=== PATIENT | female | born 2000 | race Caucasian/White ===

== ENCOUNTER 2022-06-06 23:24 | Emergency (ER) | payer OTHER | END 2022-06-07 00:13 | disposition home or self-care (01) | LOC: CSHERS 23:24 | DX: I80.9 Phlebitis and thrombophlebitis of unspecified site (principal) | CPT/HCPCS: 99283 ==

== ENCOUNTER 2022-07-01 14:36 | Outpatient (CLI) | payer OTHER | END 2022-07-01 14:37 | disposition home or self-care (01) | LOC: CSHULT 14:36 | PROVIDERS: ATTEND Family Medicine | DX: N93.9 Abnormal uterine and vaginal bleeding, unspecified (principal) | CPT/HCPCS: 76856 ==

== ENCOUNTER 2022-09-08 14:56 | Emergency (ER) | payer OTHER ==
[~2022-09-08 14:56] MED LIST: Iopamidol 300 61% 100 ML VIAL FS ONE
[2022-09-08] MEDS ORDERED: Ondansetron ODT 4 MG TAB ONE (15:37)
[2022-09-08 15:43] LABS: BHCG - Serum Negative (NEGATIVE); Pregs Control Background? CLEAR/WHITE (CLR/WHITE); Pregs Control Bar Appear? YES (CONTROL BAR)
[2022-09-08 15:59] LABS: Bilirubin Neg (Negative); Blood, Urine 150 (Negative); Clarity Cloudy (Clear); Glucose, Urine (Dipstick) Normal (Negative); Ketone, Urine 15 mg/dL (Negative); Leukocyte 100 (Negative); Nitrite Negative (Negative); Protein, Urine (Dipstick) 100 mg/dl (Neg-Trace); Urobilinogen Normal mg/dL (Less than 2)
[2022-09-08] MEDS ORDERED: Morphine 2 MG/ML VIAL ONE (16:27)
[2022-09-08] MEDS ORDERED: Promethazine HCl 25 MG/ML VIAL ONE (16:30)
[2022-09-08 16:41] LABS: Actual Bicarbonate (HCO3v) 21 mEq/L (22-28); Base Excess -0.6 mEq/L (-2 - +2); Calcium, Ionized (venous) 1.12 mmol/L (1.16-1.32); Chloride (VBG) 104 mmol/L (98-106); Hemoglobin (Hb) 13.6 g/dL (11.7-15.5); Potassium (VBG) 3.53 mmol/L (3.70-5.30); Puncture Site Other Site; RapidComm Collect By CBN; Sodium 138.6 mmol/L (133-146)
[2022-09-08 16:42] LABS: Bacteria/HPF 3+ HPF (None Seen); Mucous/LPF 1+ LPF (<2+)
[2022-09-08 17:04] LABS: #Basophils 0.1 10x3/uL (0.0-0.2); #Monocytes 0.5 10x3/uL (0.0-1.1); #Neutrophils 15.3 10x3/uL (1.5-8.4); %Basophils 0.5 % (0.0-2.0); %Lymphocytes 6.9 % (18.0-47.0); %Neutrophils 89.2 % (40.0-75.0); Hemoglobin 12.7 g/dL (12.0-15.5); Mean Corpuscular HGB CONC 34.1 g/dL (32.0-36.0); Mean Corpuscular Hemoglobin 26.3 pg (27.0-33.0); Mean Platelet Volume 10.2 fl (7.4-10.4); Platelet Count 365 10x3/uL (150-450); RBC Distribution Width 13.6 % (11.5-14.5); Red Blood Cell (RBC) Count 4.83 10x6/uL (3.90-5.03); White Blood Cell (WBC) Count 17.1 10x3/uL (3.5-10.5)
[2022-09-08 17:06] LABS: ALT (SGPT) 36 U/L (8-55); AST (SGOT) 31 U/L (5-34); Albumin 4.7 g/dL (3.5-5.0); Alkaline Phosphatase 56 U/L (40-110); Anion Gap 17 mmol/L (10-20); BUN (Urea Nitrogen) 13 mg/dL (7.0-18.7); Bilirubin, Total 0.6 mg/dL (0.2-1.2); Calc. Creatinine Clearance 0 mL/min (70-130); Calcium 9.6 mg/dL (7.8-10.44); Carbon Dioxide 18 mmol/L (22-29); Chloride 106 mmol/L (98-107); Estimated GFR 112; Globulin 2.8 g/dL (2.4-3.5); Glucose 118 mg/dL (70-105); Potassium 3.4 mmol/L (3.5-5.1); Protein, Total 7.5 g/dL (6.0-8.3); Sodium 138 mmol/L (136-145)
== END 2022-09-08 18:05 | disposition home or self-care (01) ==
LOC: CSHERS 14:56
DX: K52.9 Noninfective gastroenteritis and colitis, unspecified (principal)
CPT/HCPCS: 36415; 74177; 80053; 81003; 81015; 82805; 83605; 83690; 84703; 85025; 96361; 96365; 96375; J2272; J2550; Q0162; Q9967

== ENCOUNTER 2023-01-08 00:27 | Emergency (ER) | payer OTHER ==
[2023-01-08] MEDS ORDERED: Dicyclomine 20 MG/2 ML VIAL ONE (01:03)
[2023-01-08] MEDS ORDERED: Ondansetron PF 4 MG/2 ML Vial ONE (01:03)
[2023-01-08 01:19] LABS: #Monocytes 0.5 10x3/uL (0.0-1.1); #Neutrophils 16.5 10x3/uL (1.5-8.4); %Basophils 0.2 % (0.0-2.0); %Monocytes 2.6 % (0.0-10.0); %Neutrophils 93.9 % (40.0-75.0); Hemoglobin 13.8 g/dL (12.0-15.5); Mean Corpuscular HGB CONC 32.5 g/dL (32.0-36.0); Mean Corpuscular Hemoglobin 24.8 pg (27.0-33.0); Mean Corpuscular Volume 76.4 fl (81.6-98.3); Mean Platelet Volume 10.9 fl (7.4-10.4); Platelet Count 360 10x3/uL (150-450); RBC Distribution Width 15.3 % (11.5-14.5); Red Blood Cell (RBC) Count 5.56 10x6/uL (3.90-5.03); White Blood Cell (WBC) Count 17.6 10x3/uL (3.5-10.5)
[2023-01-08 01:30] LABS: ALT (SGPT) 18 U/L (8-55); AST (SGOT) 34 U/L (5-34); Albumin 5.1 g/dL (3.5-5.0); Alkaline Phosphatase 67 U/L (40-110); Anion Gap 18 mmol/L (10-20); BUN (Urea Nitrogen) 14 mg/dL (7.0-18.7); Bilirubin, Total 0.8 mg/dL (0.2-1.2); CK (CPK) 635 U/L (29-168); Calc. Creatinine Clearance 0 mL/min (70-130); Calcium 9.9 mg/dL (7.8-10.44); Carbon Dioxide 22 mmol/L (22-29); Chloride 106 mmol/L (98-107); Estimated GFR 100; Globulin 2.9 g/dL (2.4-3.5); Glucose 126 mg/dL (70-105); Lipase 5 U/L (8-78); Magnesium 1.6 mg/dL (1.6-2.6); Sodium 142 mmol/L (136-145)
[2023-01-08 02:22] LABS: Bilirubin Neg (Negative); Blood, Urine 50 (Negative); Clarity Slightly Cloudy (Clear); Glucose, Urine (Dipstick) Normal (Negative); Ketone, Urine 50 mg/dL (Negative); Leukocyte 25 (Negative); Nitrite Negative (Negative); Protein, Urine (Dipstick) 30 mg/dl (Neg-Trace)
[2023-01-08 02:26] LABS: Pregnancy Test - Urine (BHCG) Negative (Negative)
[2023-01-08 02:27] LABS: Pregu Control Background? CLEAR/WHITE (CLR/WHITE); Pregu Control Bar Appear? YES (CONTROL BAR)
[2023-01-08 02:30] LABS: Bacteria/HPF 3+ HPF (None Seen); CAUTI Indications for Culture Pelvic or flank pain
[2023-01-08 02:31] LABS: Urine Culture Reflex No No
== END 2023-01-08 03:05 | disposition home or self-care (01) ==
LOC: CSHERS 00:27
DX: R11.2 Nausea with vomiting, unspecified (principal); R82.71 Bacteriuria; E86.0 Dehydration; D72.829 Elevated white blood cell count, unspecified
CPT/HCPCS: 80053; 81001; 81025; 82550; 83690; 83735; 85025; 93005; 94760; 96361; 96372; 96374; J2405